=== PATIENT | male | born 1965 | race Caucasian/White ===

== ENCOUNTER 2018-03-28 13:43 | Day surgery (SDC) | payer OTHER ==
[2018-03-28] MEDS ORDERED: LACTATED RINGER'S 1,000 ML IV (15:30)
[2018-03-28] MEDS ORDERED: FENTAnyl 50 MCG/ML VIAL ×2 (16:38→17:54)
[2018-03-28] MEDS ORDERED: NEOSTIGMINE 3 MG/3 ML SYRINGE (16:38)
[2018-03-28] MEDS ORDERED: PROPOFOL 20 ML (16:38)
[2018-03-28] MEDS ORDERED: GLYCOPYRROLATE 0.4 MG INJ (16:38)
[2018-03-28] MEDS ORDERED: ROCURONIUM 50 MG INJ (16:38)
[2018-03-28] MEDS ORDERED: CEFAZOLIN 1 GM INJ (16:38)
[2018-03-28] MEDS ORDERED: MIDAZOLAM 1 MG/ML 2 ML INJ (16:38)
[2018-03-28] MEDS ORDERED: DEXAMETHASONE 4 MG/ML 1 ML INJ ×2 (16:39→17:44)
[2018-03-28] MEDS ORDERED: ONDANSETRON 4 MG INJ (16:39)
[2018-03-28] MEDS ORDERED: OXYMETAZOLINE 0.05% 15 ML NAS SPRAY NASAL (16:51)
[2018-03-28] MEDS ORDERED: BACITRACIN/POLYMYXIN 28.35 GM OINT TOP (16:51)
[2018-03-28] MEDS ORDERED: TRIMETHOBENZAMIDE 100 MG/ML VIAL IM (17:00)
[2018-03-28] MEDS ORDERED: FENTAnyl 50 MCG/ML VIAL IV ×3 (17:00)
[2018-03-28] MEDS ORDERED: MEPERIDINE 25 MG INJ IV (17:00)
[2018-03-28] MEDS ORDERED: IPRATROPIUM (NEB) 0.5 MG/2.5 ML AMP HHN (17:00)
[2018-03-28] MEDS ORDERED: OXYCODONE/ACETAMINOPHEN (5/325) TAB PO ×2 (17:00)
[2018-03-28] MEDS ORDERED: HYDROmorphONE 1 MG/5 ML IV SYRINGE IV ×3 (17:00)
[2018-03-28] MEDS ORDERED: DIPHENHYDRAMINE 50 MG INJ IV (17:00)
[2018-03-28] MEDS ORDERED: ALBUTEROL 0.083% (NEB) 2.5 MG/3 ML AMP HHN (17:00)
[2018-03-28] MEDS ORDERED: EPHEDrine SULFATE 50 MG/5 ML SYG IV (17:00)
[2018-03-28] MEDS ORDERED: LABETALOL HCL 20MG INJ (17:31)
[2018-03-28] MEDS: COCAINE 4% 4 ML TOP (17:33)
[2018-03-28] MEDS: LIDOCAINE 1%/EPI 30 ML INJ (17:39)
[2018-03-28] MEDS ORDERED: SUGAMMADEX SODIUM 200 MG/2 ML VIAL IV (18:09)
[2018-03-28] MEDS ORDERED: HYDROCODONE/APAP (5/325) TAB PO (18:30)
[2018-03-28] MEDS: ONDANSETRON 4 MG INJ IV (18:38)
[2018-03-28] MEDS: hydrALAzine 20 MG INJ IV (18:39)
[2018-03-28] MEDS: MIDAZOLAM 1 MG/ML 2 ML INJ IV (18:46)
[2018-03-28] MEDS: LABETALOL HCL 20MG INJ IV (19:13)
[2018-03-29] MEDS ORDERED: INFLUENZA VIRUS VACCINE 0.5 ML (DISPENSING) IM* (09:00)
== END 2018-03-28 20:19 | disposition home or self-care (01) ==
LOC: SDS 13:43
DX: J32.9 Chronic sinusitis, unspecified (principal); J33.9 Nasal polyp, unspecified; J30.9 Allergic rhinitis, unspecified; I10 Essential (primary) hypertension; E66.9 Obesity, unspecified; K21.9 Gastro-esophageal reflux disease without esophagitis
CPT/HCPCS: 31090